=== PATIENT | female | born 1960 | race Caucasian/White ===

== ENCOUNTER → 2020-06-03 07:40 | Outpatient (CLI) | payer OTHER, SELFPAY ==
[2020-06-03 08:16] LABS: Hematocrit 40.8 % (36-46); Hemoglobin 13.8 g/dL (12.0-16.0); Mean Corpuscular HGB Conc 33.8 % (30-36); Mean Corpuscular Hemoglobin 32.1 PG (26-34); Mean Corpuscular Volume 94.9 fL (80-100); Platelet Count 269 X10^3/uL (150-400); Red Cell Distribution Width 12.9 % (11.6-14.8); White Blood Cell Count 4.8 X10^3/uL (4.5-11.0)
[2020-06-03 08:33] LABS: Alanine Aminotransferase 32 IU/L (<35); Albumin 4.2 g/dL (3.5-5.0); Albumin Globulin Ratio 1.5 (1.0-2.8); Alkaline Phosphatase 78 U/L (38-126); Aspartate Aminotransferase 37 IU/L (14-36); BUN Creatinine Ratio 27.6 (6-22); Bilirubin Total 0.3 mg/dL (0.2-1.3); Blood Urea Nitrogen 16 mg/dL (7-17); Calcium 9.5 mg/dL (8.4-10.2); Carbon Dioxide 29 mmol/L (22-32); Chloride 107 mmol/L (98-107); Cholesterol 237 mg/dL (140-199); Estimated Glomerular Filt Rate > 60.0 mL/min (>60); Globulin 2.8 g/dL (1.7-4.1); Glucose 108 mg/dL (70-100); HDL Cholesterol 68 mg/dL (40-60); HEMOLYSIS < 15 (0-50); LDL Cholesterol Calculated 150 mg/dL (<100); Potassium 4.6 mmol/L (3.4-5.1); Sodium 139 mmol/L (137-145); Triglycerides 95 mg/dL (35-150)
[2020-06-03 09:51] LABS: TSH w/ Reflex to FT4 1.48 uIU/mL (0.47-4.68)
== END ==
PROVIDERS: PCP Registered Nurse Diabetes Educator; Referring Provider Registered Nurse Diabetes Educator; Visit Provider Registered Nurse Diabetes Educator
DX: E78.5 Hyperlipidemia, unspecified (principal); F41.9 Anxiety disorder, unspecified; R03.0 Elevated blood-pressure reading, without diagnosis of hypertension
CPT/HCPCS: 36415; 80053; 80061; 84443; 85027

== ENCOUNTER → 2021-05-03 09:10 | Outpatient (CLI) | payer OTHER, SELFPAY ==
--- NOTE | 2021-05-03 | DI.RAD.S_ITS ---
PROCEDURE: XR ABDOMEN MIN 2V INDICATIONS: Fecal urgency TECHNIQUE: 2 views of the abdomen were acquired. COMPARISON: None. FINDINGS: Surgical changes and devices: None. Bowel: No pneumoperitoneum. The bowel gas pattern is normal. Mild fecal load. Soft tissues: No masses; visualized solid organ contours appear normal in size. No suspicious abdominal calcifications. Bones: No suspicious bony abnormalities. IMPRESSION: Unremarkable supine abdominal films. Dictated by: Igor Kitchen M.D. on 05/03/2021 at 11:43 Approved by: Igor Kitchen M.D. on 05/03/2021 at 11:43
== END ==
PROVIDERS: PCP Physician Assistant; Referring Provider Internal Medicine Gastroenterology; Visit Provider Internal Medicine Gastroenterology
DX: R15.2 Fecal urgency (principal)
CPT/HCPCS: 74019

== ENCOUNTER → 2021-06-05 14:17 | Outpatient (CLI) | payer OTHER, SELFPAY ==
[2021-06-05 16:50] LABS: COVID19 -Nasal RAPID Negative (Negative)
== END ==
PROVIDERS: PCP Physician Assistant; Visit Provider Nurse Practitioner Family
DX: Z01.812 Encounter for preprocedural laboratory examination (principal); Z20.822 Contact with and (suspected) exposure to COVID-19
CPT/HCPCS: 87635

== ENCOUNTER 2021-06-06 08:39 | Day surgery (SDC) | payer OTHER, SELFPAY ==
--- NOTE | 2021-06-06 | PATH_ITS ---
[facility] Accession Number: [id number] . 01 Material submitted: . colon - RANDOM COLON BIOPSIES . 02 Diagnosis: Random Colon, Biopsies: Colonic mucosa with no diagnostic abnormality. Negative for active, chronic, and microscopic colitis. Negative for dysplasia and malignancy. . MRV 06/08/20215 Local . 02 Electronically signed: . Shiraz Rivera MD, PhD, Pathologist NPI- [id number] . 01 Gross description: . RANDOM COLON BIOPSIES: Received in formalin are 3 fragment(s) of pitts, soft tissue measuring 0.1 x 0.1 x 0.1 cm to 0.2 x 0.1 x 0.1 cm submitted entirely in 1 cassette(s) /AMANDA 06/07/20211956 Local . 02 Pathologist provided ICD-10: Z86.010, R19.4 . 02 CPT . 275666 Performed at: 01 [facility] [address], [place], [place] [id number] MD Flavio Smallwood MD Phone: [phone] Performed at: 02 [facility] [address] [place], [place] [id number] MD Page Goodwin MD Phone: [phone]
[2021-06-06 08:53] VITALS: BP 140/90; PULSE 72; RESP 16; TEMP 36.6; O2SAT 95; BMI 32.8
[2021-06-06] MEDS: SODIUM CHLORIDE 0.9% 1,000 ML 84 ML IV (09:05)
--- NOTE | 2021-06-06 09:09 | PM.HP.1 ---
History of Present Illness History of Present Illness Date Patient Seen: 06/06/21 Time Patient Seen: 09:09 Chief complaint: DX COLONOSCOPY Narrative: I reviewed my note from April 03, 2021 no significant changes. However symptoms are slightly improved with reduction in sertraline dose GERD is improved with PPI. Patient History Medical History Allergies (~1969) Anxiety (~2019) Diverticular disease (~2018) Dyslipidemia Elevated BP without diagnosis of hypertension GERD (gastroesophageal reflux disease) (~1989) Gestational diabetes (~1999) Herpes (~1989) Surgical History Anesthesia History of toe surgery (~05/2019) Family & Social History Family History Father History of heart disease Hyperlipidemia Hypertension Brother Hypertension Mental health problem Brother Hypertension Sister Breast cancer Hypertension Grandfather Cancer Grandfather History of heart disease Grandmother Stroke Family/Other Mental health problem Social History: household members spouse Tobacco & Substance use: Smoking Status Former smoker alcohol intake frequency 0-2 drinks per day Substance Use Type does not use Meds Home Medications and Allergies Home Medications Medication Instructions Recorded Confirmed Type calcium carbonate 600 mg-vitamin cap PO 07/22/20 07/22/20 History D3 12.5 mcg (500 unit) capsule (Calcium 600 with Vitamin D3) coenzyme Q10 75 mg capsule (Ultra 75 mg PO DAILY 07/22/20 07/22/20 History CoQ10) lactobacillus combination no.4 3 3,000 mmu cells PO DAILY 07/22/20 07/22/20 History billion cell capsule (Probiotic) multivitamin 1 tab PO DAILY 07/22/20 07/22/20 History losartan 50 mg tablet 50 mg PO BID 30 Days #60 tab 08/25/20 06/06/21 Rx atorvastatin 20 mg tablet See Rx Instructions .ROUTE 01/13/21 06/06/21 Rx .COMPLEX #90 tab sertraline 100 mg tablet 50 mg PO DAILY 06/06/21 06/06/21 History Allergies Allergy/AdvReac Type Severity Reaction Status Date / Time No Known Drug Allergies Allergy Verified 06/06/21 08:47 Review of Systems Review of Systems ROS: Yes All systems reviewed with the patient and are negative except as otherwise documented Exam Vital Signs (past 8 hours): - 06/06/21 08:53 Temperature 97.8 F Pulse Rate 72 Respiratory Rate 16 Blood Pressure 140/90 Pulse Oximetry 95 Oxygen Delivery Method Room Air Const General: cooperative and comfortable Orientation: alert HENMT Head: normocephalic Ears: external ears normal Nose: external nose normal Face and sinus: normal facial exam Mouth: oral mucosae normal Eyes General: appearance normal, both eyes and all related structures Neck Neck: normal visual inspection Chest Chest: normal inspection of the chest Resp Effort & Inspection: normal respiratory effort Cardio Rate: regular rate Heart Sounds: murmur GI Inspection: normal to inspection Skin General: no rashes or lesions noted and No jaundice Neuro General: patient alert and moves all extremities Cognition: normal cognition Speech: speech normal Extrem General: no pedal edema Psych Appearance: grossly normal Assessment & Plan Assessment & Plan narrative: Change in bowel habit with diarrhea rectal bleeding low back pain fecal incontinence. Colonoscopy is pursued today. She has a personal history of colon polyps as well. Time Spent With Patient Critical Care time: I spent a total of [] minutes of critical care time on this patient's care today; this time is exclusive of procedural time.
--- NOTE | 2021-06-06 09:11 | PM.PREOP ---
Pre-operative Note COVID-19 COVID-19 status: Negative Result date/Date tested (Pos, Neg/Pending): 06/05/21 Interval Note History & Physical reviewed/Exam performed by Physician: Yes Changes to H&P: Yes ASA Class (for procedural sedation): II
--- NOTE | 2021-06-06 09:52 | PM.OP.COLON ---
Operative Date/Time/Diagnoses Date of procedure: 06/06/21 Time of procedure: 09:52 Pre-op diagnosis: Change in bowel habits with diarrhea rectal bleeding personal history of colon polyps. Post-op diagnosis: same Procedure & Clinicians Study performed: Colonoscopy with biopsies Same procedure as scheduled: Yes Indications: Change in bowel habit diarrhea rectal bleeding personal history of colon polyps Surgeon: Clemente Chamberlain Procedure Notes SCOAP/Timeout: Done Procedure in detail: After the risks and benefits were explained, written and verbal informed consent was obtained. The patient was brought into the procedure room and placed into the left lateral decubitus position. Please see nurse industrial machinery mechanic notes for sedation details. Digital rectal examination was accomplished. The scope was introduced into the patient and advanced under direct visualization to the cecum as identified by the appendiceal orifice and ileocecal valve. The scope was slowly withdrawn to carefully examine the mucosa for any defects or lesions. Comprehensive imaging was accomplished throughout the rectum including the dentate line. The colon was decompressed, the scope was then removed from the patient who tolerated the procedure well. Scope withdrawal time: 8 minutes Sedation minutes: 16 Complications: none Impression: There was scattered diverticulosis in the left colon extending into the transverse and even up into the right colon. I did not appreciate any significant polyps mass lesions or inflammatory features throughout. Random colon biopsies were taken for exclusion of microscopic colitis. Patient had a lengthy colon and it was difficult to manipulate the scope tip fully into the terminal ileum. I had glimpses of the very terminal aspect of TI and it appeared normal. Grade 1 hemorrhoids were noted on direct views through the dentate line. Endoscopic diagnosis 1. Grade 1 hemorrhoids 2. Diverticulosis Post-procedure Recommendations: Colonoscopy in 5 years Plan for aftercare: 1. Await histopathology 2. Repeat colonoscopy 5 years considering personal history of colon polyps. Disposition: PACU
[2021-06-06 09:55] VITALS: BP 118/66; PULSE 66; RESP 16; TEMP 36.4; O2SAT 93
[2021-06-06 10:00] VITALS: BP 126/73; PULSE 61; RESP 11; O2SAT 93
[2021-06-06 10:05] VITALS: BP 124/80; PULSE 64; RESP 16; O2SAT 94
[2021-06-06 10:12] VITALS: BP 129/65; PULSE 61; RESP 12; TEMP 36.1; O2SAT 95
== END 2021-06-06 10:29 | disposition home or self-care (01) ==
PROVIDERS: PCP Physician Assistant; Referring Provider Internal Medicine Gastroenterology; Visit Provider Internal Medicine Gastroenterology
PROC: 0DJD8ZZ Inspection of Lower Intestinal Tract, Via Natural or Artificial Opening Endoscopic (ICD-10-PCS; CPT 45378; principal; 2021-06-06 09:30)
DX: K62.5 Hemorrhage of anus and rectum (principal); Z86.010 Personal history of colon polyps; R19.7 Diarrhea, unspecified; I10 Essential (primary) hypertension; E78.00 Pure hypercholesterolemia, unspecified; F41.9 Anxiety disorder, unspecified; K64.0 First degree hemorrhoids; K57.30 Diverticulosis of large intestine without perforation or abscess without bleeding
CPT/HCPCS: 45380

== ENCOUNTER 2024-03-30 07:38 | Day surgery (SDC) | payer BC, SELFPAY ==
--- NOTE | 2024-03-30 | PATH_ITS ---
[facility] Accession Number: [id number] No. of containers..03 Tissue . 01 Material submitted: . PART A: duodenum - DUODENUM PART B: stomach - ANTRUM PART C: gastrointestinal site - GASTRIC POLYPS . 01 Diagnosis: A. DUODENUM, BIOPSY: Duodenal mucosa with no diagnostic abnormality. Negative for active inflammation, features of sprue, dysplasia, or malignancy. . B. STOMACH, ANTRUM, BIOPSY: Antral mucosa with no diagnostic abnormality. Negative for Helicobacter by immunohistochemistry. Negative for intestinal metaplasia. Negative for dysplasia and malignancy. . C. STOMACH, POLYPS: Antral mucosa with mild neutrophilic activity and reactive epithelial changes, and separate fragments consistent with fundic gland polyps. Negative for Helicobacter by immunohistochemistry. Negative for intestinal metaplasia. Negative for dysplasia and malignancy. [facility] 04/01/2024 1523 Local . 01 Electronically signed: . Page Goodwin MD, Pathologist NPI- [id number] . 01 Gross description: . Part A: DUODENUM: Received in formalin are 4 fragment(s) of pitts, soft tissue measuring 0.1 x 0.1 x 0.1 cm to 0.4 x 0.4 x 0.2 cm submitted entirely in 1 cassette(s) Part B: ANTRUM: Received in formalin is 1 fragment(s) of pitts, soft tissue measuring 0.4 x 0.3 x 0.3 cm submitted entirely in 1 cassette(s) Part C: GASTRIC POLYPS: Received in formalin are 3 fragment(s) of pitts, soft tissue measuring 0.1 x 0.1 x 0.1 cm to 0.3 x 0.3 x 0.3 cm submitted entirely in 1 cassette(s) /AMANDA 03/31/2024 0135 Local . 01 Microscopic: . B. An immunohistochemical stain was performed to evaluate for Helicobacter organisms and is negative. The control stain showed appropriate reactivity. . C. An immunohistochemical stain was performed to evaluate for Helicobacter organisms and is negative. The control stain showed appropriate reactivity. . * This test was developed and the performance characteristics were validated by [facility]. It has not been cleared or approved by the U.S. Food and Drug Administration. . 01 Pathologist provided ICD-10: K31.7 . 01 CPT . 193138, 187879, 047417, G33261 Specimen Comment: A courtesy copy of this report has been sent to [phone] Performed at: 01 [address] [address], [place], [place] [id number] MD Flavio Smallwood MD Phone: [phone]
[2024-03-30 08:19] VITALS: BP 138/84; PULSE 74; RESP 18; TEMP 36.9; O2SAT 95
--- NOTE | 2024-03-30 08:28 | PM.HP.1 ---
History of Present Illness History of Present Illness Date Patient Seen: 03/30/24 Time Patient Seen: 08:28 Chief complaint: EGD w/poss bx Narrative: 63-year-old female here for upper endoscopy. I reviewed my recent office note. Other than some bilateral flank discomfort after eating, no additional symptoms. She reminds me that she bloats rather easily. [facility] Medical History Allergies (~1969) Herpes (~1989) GERD (gastroesophageal reflux disease) (~1989) Diverticular disease (~2018) Gestational diabetes (~1999) Elevated BP without diagnosis of hypertension Anxiety (~2019) Dyslipidemia Surgical History Anesthesia History of toe surgery (~05/2019) Family History Father History of heart disease Hyperlipidemia Hypertension Brother Hypertension Mental health problem Brother Hypertension Sister Breast cancer Hypertension Grandfather Cancer Grandfather History of heart disease Grandmother Stroke Family/Other Mental health problem Social History household members: spouse Smoking Status: Former smoker alcohol intake: current Meds Home Medications and Allergies Home Medications Medication Instructions Recorded Confirmed Type calcium carbonate 600 mg-vitamin cap PO 07/22/20 07/22/20 History D3 12.5 mcg (500 unit) capsule (Calcium 600 with Vitamin D3) coenzyme Q10 75 mg capsule (Ultra 75 mg PO DAILY 07/22/20 07/22/20 History CoQ10) lactobacillus combination no.4 3 3,000 mmu cells PO DAILY 07/22/20 03/30/24 History billion cell capsule (Probiotic) multivitamin 1 tab PO DAILY 07/22/20 03/30/24 History losartan 50 mg tablet 50 mg PO BID HTN 30 days #60 tabs 08/25/20 03/30/24 Rx sertraline 100 mg tablet 50 mg PO DAILY 06/06/21 06/06/21 History atorvastatin 20 mg tablet See Rx Instructions .Route 06/19/21 03/30/24 Rx .COMPLEX #90 tabs amlodipine 5 mg tablet 5 mg PO DAILY 03/30/24 03/30/24 History esomeprazole magnesium 20 mg 20 mg PO DAILY 03/30/24 03/30/24 History capsule,delayed release (Nexium) hydrochlorothiazide 25 mg tablet 25 mg PO DAILY 03/30/24 03/30/24 History Allergies Allergy/AdvReac Type Severity Reaction Status Date / Time No Known Drug Allergies Allergy Verified 03/30/24 08:05 Review of Systems Review of Systems ROS: Yes All systems reviewed with the patient and are negative except as otherwise documented Exam Vital Signs (past 8 hours): - 03/30/24 08:19 Temperature 98.4 F Pulse Rate 74 Respiratory Rate 18 Blood Pressure 138/84 Pulse Oximetry 95 Oxygen Delivery Method Room Air Oxygen Delivery Method Room Air Const General: cooperative HENMT Head: normal to inspection Eyes General: appearance normal, both eyes and all related structures Neck Neck: normal visual inspection Chest Chest: normal inspection of the chest Resp Effort & Inspection: normal respiratory effort Cardio Rate: regular rate GI Inspection: normal to inspection Skin General: no rashes or lesions noted Neuro General: patient alert and patient awake Extrem General: normal to inspection and no pedal edema Psych Appearance: grossly normal Assessment & Plan Assessment & Plan narrative: 63-year-old female with chronic longstanding reflux. She is ongoing symptoms of bloating nonspecific abdominal pain. Diagnostic EGD is pursued today to exclude complications of GERD, Barretts, pyloric stenosis and exclude celiac. Time-Based Coding :: [TOTAL MINUTES] spent with patient and on the chart (including review of chart, obtaining history, exam, reviewing outside data, placing orders, documenting exam and treatment plan, and counseling patient) on [DATE].
--- NOTE | 2024-03-30 08:29 | PM.PREOP ---
Pre-operative Note Interval Note History & Physical reviewed/Exam performed by Physician: Yes Changes to H&P: No ASA Class (for procedural sedation): II
[2024-03-30 08:32] LABS: COVID19 -Nasal RAPID Negative (Negative)
--- NOTE | 2024-03-30 09:21 | PM.OP.EGD ---
Operative Date/Time/Diagnoses Date of procedure: 03/30/24 Time of procedure: 09:21 Pre-op diagnosis: Chronic GERD, abdominal pain, bloating Post-op diagnosis: same Procedure & Clinicians Study performed: EGD with biopsies Same procedure as scheduled: Yes Indications: Chronic GERD, abdominal pain, bloating Surgeon: Clemente Chamberlain Procedure Notes SCOAP/Timeout: Done Procedure in detail: After the risks and benefits were explained, written and verbal informed consent was obtained. The patient was brought into the procedure room and placed into the left lateral decubitus position. Please see anesthesia notes for sedation details. The scope was introduced into the mouth through the bite block and advanced under direct visualization to the 2nd portion of the duodenum. The scope was slowly withdrawn carefully examining the mucosa for any defects or lesions. Retroflexed views were accomplished in the stomach. The stomach was decompressed, the scope was then removed from the patient who tolerated the procedure well. Sedation minutes: 8 Complications: none Impression: 1. Duodenum: This was visually normal from the bulb through to the 2nd portion. No ulcers mass lesions or strictures. Random D2 biopsies were taken for exclusion of sprue in the context of her pain and bloating symptoms. 2. Stomach: No ulcers no mass lesions no outlet obstruction. There was a mild streaky erythema in the antrum and biopsies were therefore acquired for exclusion of H pylori. Retroflexed views of the LES disclosed a Hill valve grade 3. Small sliding hiatal hernia was noted. 3. Esophagus: The GEJ was at approximately 34 cm from the incisors. The Z-line was sharp and well demarcated at the level of GE junction. No suggestion of Barretts. There was only a single very scant area of healing erosion right at the level of the GEJ. No stricturing no mass lesions the remainder of the esophagus was unremarkable. Endoscopic diagnosis 1. Small sliding hiatal hernia 2. Mild gastropathy 3. Minimal esophagitis Post-procedure Plan for aftercare: 1. Await histology 2. Continue anti-reflux therapy. 3. Continue bowel regimen as discussed in GI clinic. Disposition: PACU
[2024-03-30 09:25] VITALS: BP 126/86; PULSE 87; RESP 16; TEMP 36.2; O2SAT 94
[2024-03-30 09:30] VITALS: BP 112/71; PULSE 72; RESP 14; O2SAT 98
[2024-03-30 09:34] VITALS: BP 112/71; PULSE 74; RESP 16; TEMP 36.2; O2SAT 98
== END 2024-03-30 09:49 | disposition home or self-care (01) ==
PROVIDERS: PCP Internal Medicine; Referring Provider Internal Medicine Gastroenterology; Visit Provider Internal Medicine Gastroenterology
PROC: 0DJ08ZZ Inspection of Upper Intestinal Tract, Via Natural or Artificial Opening Endoscopic (ICD-10-PCS; CPT 43239; principal; 2024-03-30 09:30)
DX: R10.9 Unspecified abdominal pain (principal); K21.9 Gastro-esophageal reflux disease without esophagitis; R14.0 Abdominal distension (gaseous); Z11.52 Encounter for screening for COVID-19; K20.90 Esophagitis, unspecified without bleeding; K44.9 Diaphragmatic hernia without obstruction or gangrene; K31.9 Disease of stomach and duodenum, unspecified
CPT/HCPCS: 43239; 87635; J2405; J2704

== ENCOUNTER 2024-12-30 14:44 | Emergency (ER) | payer BC, SELFPAY ==
[2024-12-30] VITALS (13 sets, daily range): BP systolic 142–166; BP diastolic 67–86; PULSE 63–85; RESP 16–47; O2SAT 91–98; BMI 32.1
--- NOTE | 2024-12-30 15:06 | DI.RAD.S_ITS ---
PROCEDURE: XR CHEST 1V INDICATIONS: Chest Pain TECHNIQUE: One view of the chest was acquired. COMPARISON: None. FINDINGS: Surgical changes and devices: None. Lungs and pleura: Lungs are clear. No pleural effusions or pneumothorax. Mediastinum: Mediastinal contours appear normal. Heart size is normal. Bones and chest wall: No suspicious bony lesions. Overlying soft tissues appear unremarkable. IMPRESSION: No acute cardiopulmonary abnormality is seen. Approved by: Tip Oliveira M.D. on 12/30/2024 at 15:34
--- NOTE | 2024-12-30 15:11 | EKG_ITS ---
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
[2024-12-30 16:05] LABS: Add Manual Diff / Slide Review NO; Hematocrit 38.9 % (36-46); Hemoglobin 13.3 g/dL (12.0-16.0); Lymphocytes Absolute Auto 1700 /uL (1100-4500); Mean Corpuscular HGB Conc 34.1 % (30-36); Mean Corpuscular Hemoglobin 31.9 PG (26-34); Mean Corpuscular Volume 93.5 fL (80-100); Platelet Count 265 X10^3/uL (150-400)
[2024-12-30 16:09] LABS: INR 1.0 (0.9-1.3); Prothrombin Time 11.5 SECONDS (9.4-12.5)
[2024-12-30 16:12] LABS: PTT Partial Thromboplastin Tim 28 SECONDS (25.1-36.5)
[2024-12-30 16:14] LABS: Alanine Aminotransferase 33 IU/L (<35); Albumin 4.5 g/dL (3.5-5.0); Albumin Globulin Ratio 1.4 (1.0-2.8); Alkaline Phosphatase 102 U/L (38-126); Blood Urea Nitrogen 8 mg/dL (7-17); Calcium 10.1 mg/dL (8.4-10.2); Carbon Dioxide 24 mmol/L (22-32); Chloride 102 mmol/L (98-107); Creatine Kinase 38 U/L (30-135); Estimated Glomerular Filt Rate > 60 mL/min (>60); Globulin 3.3 g/dL (1.7-4.1); Glucose 97 mg/dL (70-99); HEMOLYSIS < 15 (0-50); Lipase 52 U/L (23-300); Magnesium 2.1 mg/dL (1.6-2.3); Potassium 3.6 mmol/L (3.4-5.1); Sodium 137 mmol/L (137-145); Total Protein 7.8 g/dL (6.3-8.2)
[2024-12-30 16:25] LABS: NT-proBNP (BNP-Adult 18+) 300 pg/mL (<125); Troponin I < 0.012 ng/mL (0.01-0.034)
--- NOTE | 2024-12-30 17:49 | EKG_ITS ---
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
--- NOTE | 2024-12-30 17:57 | ED.CHESTPAIN ---
HPI - Chest Pain General Chief Complaint: Chest Pain Stated Complaint: sent from [facility] ([place]) for abnormal EKG results Time Seen by Provider: 12/30/24 14:45 Source: patient Mode of arrival: Ambulatory Limitations: no limitations History of Present Illness HPI narrative: 64-year-old female with right shoulder blade pain intermittent for the last 3 days, no known history of coronary artery disease, has no history of diabetes, does have hypertension and hyperlipidemia and former smoker from ages 16 through 32, also has family history of CAD father age 66 of [place]. No previous cardiac testing. Denies recent cough fevers chills. Denies recent new activities. Pain does not worse with movement of her right upper extremity, or with deep breathing. No history of blood clots to legs or lungs, no leg pain or swelling symptoms. Related Data Home Medications ?Medication ?Instructions ?Recorded ?Confirmed calcium 600 mg (as cap PO 07/22/20 07/22/20 carbonate)-vitamin D3 12.5 mcg (500 unit) capsule (Calcium with Vit D3) coenzyme Q10 75 mg capsule (Ultra 75 mg PO DAILY 07/22/20 07/22/20 CoQ10) lactobacillus combination no.4 3 3,000 mmu cells PO DAILY 07/22/20 03/30/24 billion cell capsule (Probiotic) multivitamin 1 tab PO DAILY 07/22/20 03/30/24 sertraline 100 mg tablet 50 mg PO DAILY 06/06/21 06/06/21 amlodipine 5 mg tablet 5 mg PO DAILY 03/30/24 03/30/24 esomeprazole magnesium 20 mg 20 mg PO DAILY 03/30/24 03/30/24 capsule,delayed release (Nexium) hydrochlorothiazide 25 mg tablet 25 mg PO DAILY 03/30/24 03/30/24 Previous Rx's ?Medication ?Instructions ?Recorded losartan 50 mg tablet 50 mg PO BID HTN 30 days #60 tabs 08/25/20 atorvastatin 20 mg tablet See Rx Instructions .Route 06/19/21 .COMPLEX #90 tabs amoxicillin 875 mg tablet 875 mg PO BID dental infection 10 12/30/24 days #20 tabs doxycycline hyclate 100 mg tablet 100 mg PO BID #20 tabs 12/30/24 Allergies Allergy/AdvReac Type Severity Reaction Status Date / Time No Known Drug Allergies Allergy Verified 03/30/24 08:05 Patient History Medical History Allergies (~1969) Herpes (~1989) GERD (gastroesophageal reflux disease) (~1989) Diverticular disease (~2018) Gestational diabetes (~1999) Elevated BP without diagnosis of hypertension Anxiety (~2019) Dyslipidemia Surgical History Anesthesia History of toe surgery (~05/2019) Family History Father History of heart disease Hyperlipidemia Hypertension Brother Hypertension Mental health problem Brother Hypertension Sister Breast cancer Hypertension Grandfather Cancer Grandfather History of heart disease Grandmother Stroke Family/Other Mental health problem Social History household members: spouse Smoking Status: Former smoker alcohol intake: current Smoking Status: Former smoker alcohol intake frequency: 0-2 drinks per day Exam Narrative Exam Narrative: GENERAL: Well-developed patient, in mild distress. HEAD: Atraumatic. Normocephalic. EYES: Pupils equal round and reactive. Extraocular motions intact. No scleral icterus. No injection or drainage. ENT: Nose without bleeding, purulent drainage. Throat without erythema, tonsillar hypertrophy or exudate. Airway patent. NECK: Trachea midline. Non tender CARDIOVASCULAR: Regular rate and rhythm without murmurs, gallops, or rubs. RESPIRATORY: Clear to auscultation. Breath sounds equal bilaterally. No wheezes, rales, or rhonchi. GASTROINTESTINAL: Abdomen soft, non-tender, nondistended. EXTREMITIES: No edema or joint tenderness. No tenderness scapular tip or along rhomboids, no skin changes to the scapula region, no reproduction of symptoms subscapular with range of motion left upper extremity, or movement of left upper extremity against resistance with abduction adduction internal rotation. BACK: Nontender without deformity or crepitance. No flank tenderness. NEURO: AOx3. Motor functions grossly nonfocal. SKIN: No rash or erythema of visible areas Initial Vital Signs Initial Vital Signs: Vital Signs Pulse Rate 80 12/30/24 15:07 Respiratory Rate 16 12/30/24 15:07 Blood Pressure 142/71 H 12/30/24 15:07 Pulse Oximetry 95 12/30/24 15:07 Oxygen Delivery Method Room Air 12/30/24 15:07 Scores HEART Score Heart Score history: Slightly Suspicious Heart Score EKG: Normal Heart Score Age: 45-64 years old Heart Score risk factors: > 3 risk factors or hx of atherosclerotic disease Heart Score troponin: < or = to normal limit Heart Score Total: 3 Course Orders Ordered: ED Orders 12/30/24 15:52 Complete Blood Count AUTO DIFF Stat Comprehensive Metabolic Panel Stat D Dimer Stat Lipase Stat Magnesium Stat NT-proBNP (BNP-Adult 18+) Stat PTT Partial Thromboplastin Nino Stat Prothrombin Time INR Stat Troponin & CK Cardiac Panel Stat 12/30/24 17:47 EKG-12 Lead Stat 12/30/24 18:29 CT angio chest PE protocol Stat 12/30/24 19:12 Troponin I Stat Discontinued Medications Amoxicillin (Amoxicillin 250 Mg Capsule) 1,000 mg PO NOW ONE Stop: 12/30/24 21:29 Last Admin: 12/30/24 21:32 Dose: 1,000 mg Documented By: HEMAL Aspirin (Aspirin 81 Mg Chew Tab) 324 mg PO NOW ONE Stop: 12/30/24 15:07 Last Admin: 12/30/24 18:13 Dose: Not Given Documented By: RAIMUNDO Aspirin (Aspirin 81 Mg Chew Tab) 324 mg PO NOW ONE Stop: 12/30/24 18:08 Last Admin: 12/30/24 18:10 Dose: 324 mg Documented By: RAIMUNDO Doxycycline Hyclate (Doxycycline Hyclate 100 Mg Tablet) 100 mg PO NOW ONE Stop: 12/30/24 21:21 Last Admin: 12/30/24 21:31 Dose: 100 mg Documented By: HEMLA Ceftriaxone Sodium 1,000 mg/ (Sodium Chloride) 100 mls @ 200 mls/hr IV NOW ONE Stop: 12/30/24 21:21 Last Admin: 12/30/24 21:33 Dose: Not Given Documented By: HEMAL Vital Signs Vital signs: Vital Signs - 8 hr 12/30/24 16:33 12/30/24 16:34 12/30/24 16:34 Pulse Rate 85 Respiratory Rate 18 Blood Pressure 158/67 H Pulse Oximetry 91 93 12/30/24 17:00 12/30/24 17:00 12/30/24 17:30 Pulse Rate 69 72 Respiratory Rate 20 23 Blood Pressure 144/85 H Pulse Oximetry 94 93 12/30/24 17:30 12/30/24 18:00 12/30/24 18:30 Pulse Rate 77 70 Respiratory Rate 20 24 Blood Pressure 144/86 H Pulse Oximetry 96 98 12/30/24 19:00 12/30/24 19:30 12/30/24 20:00 Pulse Rate 72 66 63 Respiratory Rate 23 21 47 H Blood Pressure Pulse Oximetry 94 96 94 12/30/24 20:30 12/30/24 21:04 12/30/24 21:05 Pulse Rate 66 76 76 Respiratory Rate 18 Blood Pressure Pulse Oximetry 94 94 97 12/30/24 21:05 Pulse Rate Respiratory Rate Blood Pressure 166/84 H Pulse Oximetry MDM - Chest Pain Lab Data Attestation: I reviewed the patient's lab results. Lab results narrative: White blood cell count 24770, hemoglobin 13.3, platelets adequate. Glucose 97. Normal renal function, serum CO2, electrolytes. Liver functions normal. Lipase normal. Initial troponin negative/unmeasurable. BNP 300 not very elevated. 12/30/24 15:52 12/30/24 15:52 Labs: Lab Results 12/30/24 12/30/24 Range/Units 15:52 19:12 WBC 11.1 H (4.5-11.0) X10^3/uL RBC 4.16 (4.0-5.2) X10^6/uL Hgb 13.3 (12.0-16.0) g/dL Hct 38.9 (36-46) % MCV 93.5 (80-100) fL MCH 31.9 (26-34) PG MCHC 34.1 (30-36) % RDW 14.2 (11.6-14.8) % Plt Count 265 (150-400) X10^3/uL Neut % (Auto) 74.3 (50-75) % Lymph % (Auto) 14.9 L (25-40) % Garland % (Auto) 8.1 (3-14) % Eos % (Auto) 1.9 L (2-4) % Baso % (Auto) 0.8 (0-2) % Neut # (Auto) 8200 H (8066-2756) /uL Lymph # (Auto) 1700 (5988-9764) /uL Garland # (Auto) 900 (0-900) /uL Eos # (Auto) 200 (0-450) /uL Baso # (Auto) 100 (0-100) /uL PT 11.5 (9.4-12.5) SECONDS INR 1.0 (0.9-1.3) APTT 28 (25.1-36.5) SECONDS D-Dimer 544 H (<500) ng/ml Sodium 137 (137-145) mmol/L Potassium 3.6 (3.4-5.1) mmol/L Chloride 102 (98-107) mmol/L Carbon Dioxide 24 (22-32) mmol/L BUN 8 (7-17) mg/dL Creatinine 0.54 (0.52-1.04) mg/dL Estimated GFR > 60 (>60) mL/min BUN/Creatinine Ratio 14.8 (6-22) Glucose 97 (70-99) mg/dL Calcium 10.1 (8.4-10.2) mg/dL Magnesium 2.1 (1.6-2.3) mg/dL Total Bilirubin 0.5 (0.2-1.3) mg/dL AST 31 (14-36) IU/L ALT 33 (<35) IU/L Alkaline Phosphatase 102 (38-126) U/L Total Creatine Kinase 38 (30-135) U/L Troponin I < 0.012 < 0.012 (0.01-0.034) ng/mL NT-Pro-B Natriuret Pep 300 H (<125) pg/mL Total Protein 7.8 (6.3-8.2) g/dL Albumin 4.5 (3.5-5.0) g/dL Globulin 3.3 (1.7-4.1) g/dL Albumin/Globulin Ratio 1.4 (1.0-2.8) Lipase 52 (23-300) U/L Imaging Data Chest x-ray: Radiologist's Impression: [address] [address] XRay Report Signed Patient: Rosemary Mendez MR#: [id number] : 1960 Acct:[id number] Age/Sex: 64 / F Date of Service: 12/30/24 Loc: ED Accession Number: [id number] Procedure: XR chest 1V Ordering Provider: Rylee Murillo MD PROCEDURE: XR CHEST 1V INDICATIONS: Chest Pain TECHNIQUE: One view of the chest was acquired. COMPARISON: None. FINDINGS: Surgical changes and devices: None. Lungs and pleura: Lungs are clear. No pleural effusions or pneumothorax. Mediastinum: Mediastinal contours appear normal. Heart size is normal. Bones and chest wall: No suspicious bony lesions. Overlying soft tissues appear unremarkable. IMPRESSION: No acute cardiopulmonary abnormality is seen. Approved by: Tip Oliveira M.D. on 12/30/2024 at 15:34 CTA chest: Radiologist's Impression: [address] [address] [address] Scan Report Signed Patient: Rosemary Mendez MR#: [id number] : 1960 Acct:[id number] Age/Sex: 64 / F Date of Service: 12/30/24 Loc: ED Accession Number: [id number] Procedure: CT angio chest PE protocol Ordering Provider: Jaime Tobar MD PROCEDURE: CT ANGIO CHEST PE PROTOCOL INDICATIONS: shoulder pain, elev D-dimer TECHNIQUE: After the administration of intravenous contrast, 2 mm thick sections acquired from the pulmonary apices to the posterior costophrenic angles. 3-dimensional maximum intensity projection (MIP) coronal and sagittal reformats were then acquired through the thorax. For radiation dose reduction, the following was used: automated exposure control, adjustment of mA and/or kV according to patient size. COMPARISON: [facility], CR, XR CHEST 1V, 12/30/2024, 15:17. FINDINGS: Image quality: Diagnostic. Pulmonary arteries: Pulmonary arteries are normal in size, and demonstrate no intraluminal filling defects to suggest central pulmonary embolism. Lower Neck: No enlarged lymph nodes. Thyroid: No thyroid nodules which require sonographic follow up, per consensus guidelines. Axillae: No enlarged lymph nodes. Chest Wall: Unremarkable. Bones: Visualized osseous structures appear intact without acute fracture or focal destructive lesion. No acute compression fractures of the imaged spine. Lungs and Pleura: No pneumothorax or pleural effusions. Mild bibasilar atelectasis. Small focal consolidation near the lingula. Lungs otherwise clear. No septal thickening or nodularity. Heart: Heart size is normal. No pericardial effusion. Coronary atherosclerotic vascular calcifications are noted. Thoracic Vessels: No aortic aneurysm. Mediastinum and Doris: No enlarged lymph nodes. Esophagus: No wall thickening. Small hiatal hernia. Upper Abdomen: Visualized upper abdomen solid organs and bowel loops appear normal. IMPRESSION: No acute pulmonary embolus or evidence for acute right-sided heart strain. Small focal consolidation near the lingula which may represent focal consolidation versus early pneumonia. Recommend follow-up imaging after treatment in 3 months to document stability versus resolution. Other chronic findings as above. Dictated by: Paresh Murray M.D. on 12/30/2024 at 20:28 Approved by: Paresh Murray M.D. on 12/30/2024 at 20:32 ECG Data Attestation: I personally reviewed and interpreted this ECG as follows: Interpretation: 1511, normal sinus rhythm with rate of 80, no obvious ST segment elevation or depression changes. MD 142, QRS 98, QTC 419. 1749, normal sinus rhythm with rate of 71, no obvious ST segment elevation or depression changes. MD 150, QRS 100, QTC 456. MDM Narrative Medical decision making narrative: 64-year-old female with no known CAD but multiple cardiac risk factors. History of hypertension, hyperlipidemia, former smoker, family history. No known diabetes. No cardiac stress testing known or prior catheterization. Has 3 days duration right shoulder blade area discomfort that it is not seem to be worse with deep inspiration or upper extremity movements, not particularly tender on examination or reproduced with right upper extremity movements against resistance. DDx consider musculoskeletal, pneumonia, ACS, PE, other. HEART Score 3. EKG x2 studies here, sinus rhythm without obvious ischemic changes. No significant change from study brought from [facility] walk-in clinic earlier today. Chest x-ray no acute changes. See radiology report. Initial lab data: White blood cell count 51589, hemoglobin 13.3, platelets adequate. Glucose 97. Normal renal function, serum CO2, electrolytes. Liver functions normal. Lipase normal. Initial troponin negative/unmeasurable. BNP 300 not very elevated. D-dimer added 544, mild elevation. CT angiogram chest PE protocol ordered. Repeat troponin pending. CTA chest PE protocol. Impressions: ?No acute pulmonary embolus or evidence for acute right-sided heart strain. Small focal consolidation near the lingula which may represent focal consolidation versus early pneumonia. Recommend follow-up imaging after treatment in 3 months to document stability versus resolution. Other chronic findings as above. See radiology report. Repeat troponin also negative. Possible pneumonia on CTA, no PE. IV ceftriaxone, oral doxycycline ordered. We will send oral antibiotic regimen to her pharmacy. Patient refused IV antibiotics, wants to go home now, willing to get oral antibiotics 1st dose before discharge. Oral amoxicillin and oral doxycycline dispensed from the emergency department, prescription for further course antibiotics sent to her pharmacy. Advised further follow up as an outpatient. She does have multiple cardiac risk factors, given contact information for local elastic yarn twister helper, might need referral from PCP. Discharge per patient request. Home with . Follow up as above with PCP and with Cardiology as an outpatient for now. Discharge Plan Departure Patient Disposition: Home Clinical Impression: Pain in scapula, Pneumonia Activity Restrictions/Additional Instructions: Recent sore throat, right-sided scapular thoracic pain, concern for cardiac issues, referred for further testing. EKG and serial blood tests not suggestive of any heart attack at this time. Chest x-ray read as negative. D-dimer blood test was positive, further evaluation by CT angiography to make sure there is no blood clots to the lungs. CT angiogram of the chest did not show any blood clots to the lungs, but did show possible infiltrate in the left lingula, suspicious for pneumonia. We discussed antibiotics for possible pneumonia. You did not want to stay for any IV antibiotics to start. We gave 1st doses of amoxicillin and doxycycline antibiotics in the emergency department, prescription for further course of antibiotics were sent to your pharmacy requested. You have multiple cardiac risk factors including hypertension and hyperlipidemia and former smoking history, as well as family history. Consider further cardiac testing as an outpatient for now. Contact even for local elastic yarn twister helper Dr. Larry, consider calling his office tomorrow for regular hours for further testing in close follow up, though you might require a referral from your primary care provider. Take antibiotics as directed. Take Tylenol and/or Motrin for chest discomfort. Take aspirin daily for now until further evaluation by Cardiology. Consider recheck in clinic with your regular doctor early next week to reassess your lungs and pain symptoms on oral antibiotics, and to help facilitate cardiology follow up testing as an outpatient. Return earlier to this/nearest emergency department for any change worsening symptoms or any concerns prior. Prescriptions: New amoxicillin 875 mg tablet 875 mg PO BID 10 Days Qty: 20 0RF doxycycline hyclate 100 mg tablet 100 mg PO BID Qty: 20 0RF No Action losartan 50 mg tablet 50 mg PO BID 30 Days Qty: 60 2RF atorvastatin 20 mg tablet See Rx Instructions .ROUTE .COMPLEX Qty: 90 0RF Dose Instruction: TAKE 1 TABLET DAILY Rx Instructions: TAKE 1 TABLET DAILY Ultra CoQ10 75 mg capsule 75 mg PO DAILY multivitamin Tablet 1 tab PO DAILY Probiotic 3 billion cell capsule 3,000 mmu cells PO DAILY Rx Instructions: administer with a meal calcium carbonate-vitamin D3 [Calcium 600 with Vitamin D3] 600 mg(1,500mg) -500 unit capsule PO sertraline 100 mg tablet 50 mg PO DAILY amlodipine 5 mg tablet 5 mg PO DAILY hydrochlorothiazide 25 mg tablet 25 mg PO DAILY esomeprazole magnesium [Nexium] 20 mg Capsule,Delayed Release(Dr/Ec) 20 mg PO DAILY Referrals: Govind Larry MD [Physician, Cardiology] Yunior Sandoval MD [Primary Care Provider, Internal Medicine] Stand Alone Forms: Patient Portal/API
[2024-12-30] MEDS: ASPIRIN 81 MG CHEW TAB 324 MG PO (18:10)
--- NOTE | 2024-12-30 18:29 | DI.CT.S_ITS ---
PROCEDURE: CT ANGIO CHEST PE PROTOCOL INDICATIONS: shoulder pain, elev D-dimer TECHNIQUE: After the administration of intravenous contrast, 2 mm thick sections acquired from the pulmonary apices to the posterior costophrenic angles. 3-dimensional maximum intensity projection (MIP) coronal and sagittal reformats were then acquired through the thorax. For radiation dose reduction, the following was used: automated exposure control, adjustment of mA and/or kV according to patient size. COMPARISON: [facility], CR, XR CHEST 1V, 12/30/2024, 15:17. FINDINGS: Image quality: Diagnostic. Pulmonary arteries: Pulmonary arteries are normal in size, and demonstrate no intraluminal filling defects to suggest central pulmonary embolism. Lower Neck: No enlarged lymph nodes. Thyroid: No thyroid nodules which require sonographic follow up, per consensus guidelines. Axillae: No enlarged lymph nodes. Chest Wall: Unremarkable. Bones: Visualized osseous structures appear intact without acute fracture or focal destructive lesion. No acute compression fractures of the imaged spine. Lungs and Pleura: No pneumothorax or pleural effusions. Mild bibasilar atelectasis. Small focal consolidation near the lingula. Lungs otherwise clear. No septal thickening or nodularity. Heart: Heart size is normal. No pericardial effusion. Coronary atherosclerotic vascular calcifications are noted. Thoracic Vessels: No aortic aneurysm. Mediastinum and Doris: No enlarged lymph nodes. Esophagus: No wall thickening. Small hiatal hernia. Upper Abdomen: Visualized upper abdomen solid organs and bowel loops appear normal. IMPRESSION: No acute pulmonary embolus or evidence for acute right-sided heart strain. Small focal consolidation near the lingula which may represent focal consolidation versus early pneumonia. Recommend follow-up imaging after treatment in 3 months to document stability versus resolution. Other chronic findings as above. Dictated by: Paresh Murray M.D. on 12/30/2024 at 20:28 Approved by: Paresh Murray M.D. on 12/30/2024 at 20:32
[2024-12-30 19:47] LABS: Troponin I < 0.012 ng/mL (0.01-0.034)
[2024-12-30] MEDS: DOXYCYCLINE HYCLATE 100 MG TABLET PO (21:31)
[2024-12-30] MEDS: AMOXICILLIN 250 MG CAPSULE 1000 MG PO (21:32)
== END 2024-12-30 21:43 | disposition home or self-care (01) ==
PROVIDERS: Emergency Medicine; Emergency Provider Emergency Medicine; PCP Internal Medicine
DX: J18.9 Pneumonia, unspecified organism (principal); R07.9 Chest pain, unspecified; M25.511 Pain in right shoulder; Z87.891 Personal history of nicotine dependence
CPT/HCPCS: 36415; 71045; 71275; 80053; 82550; 83690; 83735; 83880; 84484; 85025; 85379; 85610; 85730; 93005; 99284; Q9967

== ENCOUNTER → 2025-02-18 10:04 | Outpatient (CLI) | payer BC, SELFPAY ==
--- NOTE | 2025-02-18 10:05 | DI.RAD.S_ITS ---
PROCEDURE: XR HIP W PEL IF DONE LT 2V INDICATIONS: lt hip pain TECHNIQUE: 2 views of the hip were acquired. COMPARISON: None. FINDINGS: Mild degenerative changes of the left hip Kellgren Maxwell grade 2-3. No radiographic evidence of fracture, dislocation or high attenuation foreign body. IMPRESSION: Mild degenerative changes left hip. If symptoms persist or worsen, or there is high clinical suspicion of pelvic/hip abnormality, MRI could be performed. Dictated by: Alek Chau M.D. on 02/19/2025 at 14:59 Approved by: Alek Chau M.D. on 02/19/2025 at 15:00
[2025-02-18 12:00] LABS: Hemoglobin A1C% w Est Avg Glu 5.7 % (4.0-6.0)
[2025-02-18 12:22] LABS: Cholesterol 234 mg/dL (140-199); HDL Cholesterol 75 mg/dL (40-60); Triglycerides 216 mg/dL (35-150)
[2025-02-18 12:46] LABS: TSH w/ Reflex to FT4 0.97 uIU/mL (0.47-4.68)
[2025-02-18 15:33] LABS: Vitamin D 25 Hydroxy (D3) 24.6 ng/mL (30.0-100.0)
== END ==
PROVIDERS: PCP Nurse Practitioner Family; Referring Provider Nurse Practitioner Family; Visit Provider Nurse Practitioner Family
DX: M25.552 Pain in left hip (principal); I10 Essential (primary) hypertension; E78.5 Hyperlipidemia, unspecified; Z13.220 Encounter for screening for lipoid disorders; Z13.21 Encounter for screening for nutritional disorder; G47.00 Insomnia, unspecified
CPT/HCPCS: 36415; 73502; 80061; 82043; 82306; 82570; 83036; 84443